=== PATIENT | male | born 1975 | race Caucasian/White ===

== ENCOUNTER 2020-04-14 13:38 | Emergency (ER) | payer SELFPAY | END 2020-04-14 14:26 | disposition home or self-care (01) | LOC: MADERS 13:38 | DX: F32.9 Major depressive disorder, single episode, unspecified (principal); F41.9 Anxiety disorder, unspecified; F17.210 Nicotine dependence, cigarettes, uncomplicated; Z71.6 Tobacco abuse counseling | CPT/HCPCS: 99406 ==

== ENCOUNTER 2020-04-15 16:59 | Emergency (ER) | payer SELFPAY | END 2020-04-15 17:32 | disposition home or self-care (01) | LOC: MADERS 16:59 | DX: F32.9 Major depressive disorder, single episode, unspecified (principal); F41.9 Anxiety disorder, unspecified; F17.210 Nicotine dependence, cigarettes, uncomplicated | CPT/HCPCS: 99283 ==